=== PATIENT | female | born 1975 | race African-American/Black ===

== ENCOUNTER 2020-06-24 00:57 | Emergency (ER) | payer OTHER ==
--- NOTE | 2020-06-24 01:24 | ER Document Report ---
ED Medical Screen (RME) - General Chief Complaint: Chest Pain Stated Complaint: CHEST PAIN Time Seen by Provider: 06/24/20 01:22 Notes: HPI: 45-year-old female with possible prior blood pressure history who is not on medications and never has been presenting for palpitations and sensation of her heart beating quickly tonight. Did check her pressure today and it was elevated so she decided to come in for evaluation she denies any actual chest pain or shortness of breath. Patient attributes her elevated blood pressure and symptoms to eating food items recently with too much salt in them. States her entire family have high blood pressure. PHYSICAL EXAMINATION: Patient is noted to be moderately hypertensive. Mildly tachycardic. Lung sounds are clear to auscultation regular rhythm. EKG does not show evidence of STEMI I have greeted and performed a rapid initial assessment of this patient. A comprehensive ED assessment and evaluation of the patient, analysis of test results and completion of medical decision making process will be conducted by an additional ED providers. Physical Exam - Vital signs Vitals: Temp Pulse Resp BP Pulse Ox 98.4 F 102 H 16 183/111 H 100 06/24/20 01:07 06/24/20 01:07 06/24/20 01:07 06/24/20 01:07 06/24/20 01:07 Course - Vital Signs Vital signs: Temp Pulse Resp BP Pulse Ox 98.4 F 102 H 16 184/110 H 100 06/24/20 01:07 06/24/20 01:07 06/24/20 01:07 06/24/20 01:13 06/24/20 01:07
[2020-06-24 01:56] LABS: ABSOLUTE LYMPHOCYTES (AUTO) 1.9 10^3/uL (0.5-4.7); ABSOLUTE MONOCYTES (AUTO) 0.4 10^3/uL (0.1-1.4); ABSOLUTE NEUT (AUTO) 3.3 10^3/uL (1.7-8.2); BASOPHILS % (AUTO) 0.7 % (0-2); EOSINOPHILS % (AUTO) 0.2 % (0-6); HEMATOCRIT 37.7 % (36.0-47.0); HEMOGLOBIN 13.1 g/dL (12.0-15.5); LYMPHOCYTES % (AUTO) 33.6 % (13-45); MEAN CORPUSCULAR HEMOGLOBIN 32.1 pg (27.0-33.4); MEAN CORPUSCULAR HGB CONC 34.6 g/dL (32.0-36.0); MEAN CORPUSCULAR VOLUME 93 fl (80-97); MONOCYTES % (AUTO) 7.2 % (3-13); PLATELET COUNT 244 10^3/uL (150-450); RED BLOOD COUNT 4.07 10^6/uL (3.72-5.28); RED CELL DISTRIBUTION WIDTH 13.1 % (11.5-14.0); SEGMENTED NEUTROPHILS % (AUTO) 58.3 % (42-78); TOTAL CELLS COUNTED % (AUTO) 100 %; WHITE BLOOD COUNT 5.7 10^3/uL (4.0-10.5)
--- NOTE | 2020-06-24 01:59 | RADIOLOGY REPORT (SQ) ---
EXAM DESCRIPTION: X-RAY CHEST- One View CLINICAL HISTORY: Hypertension COMPARISON: None available TECHNIQUE: Single view of the chest. FINDINGS: There are no discrete air space infiltrates, pneumothoraces or pleural effusions. The pulmonary vascularity is normal. The cardiomediastinal silhouette is normal in size. No suspicious lytic or blastic osseous lesions are identified. IMPRESSION: There are no acute lung parenchymal findings.
[2020-06-24 02:19] LABS: ALBUMIN 4.6 g/dL (3.5-5.0); ALKALINE PHOSPHATASE 141 U/L (38-126); ANION GAP 11 (5-19); ASPARTATE AMINO TRANSFERASE 31 U/L (14-36); BILIRUBIN,DIRECT 0.2 mg/dL (0.0-0.4); BILIRUBIN,TOTAL 0.7 mg/dL (0.2-1.3); BLOOD UREA NITROGEN 9 mg/dL (7-20); CALCIUM 9.9 mg/dL (8.4-10.2); CARBON DIOXIDE 25 mmol/L (22-30); CHLORIDE 104 mmol/L (98-107); GLUCOSE 118 mg/dL (75-110); POTASSIUM 3.7 mmol/L (3.6-5.0); TOTAL PROTEIN 8.5 g/dL (6.3-8.2)
--- NOTE | 2020-06-24 02:22 | EKG REPORT ---
SEVERITY:- BORDERLINE ECG - SINUS RHYTHM PROBABLE LEFT ATRIAL ABNORMALITY BORDERLINE T WAVE ABNORMALITIES : Confirmed by: Howard Contreras MD 24-Jun-2020 02:21:36
[2020-06-24] MEDS ORDERED: CLONIDINE HCL 0.1 MG TABLET PO ONE (03:52)
[2020-06-24] MEDS ORDERED: HYDRALAZINE HCL INJ/PF 20 MG/1 ML SDV IV ONE (05:06)
--- NOTE | 2020-06-24 05:07 | ER Document Report ---
ED Cardiac - General Chief Complaint: Chest Pain Stated Complaint: CHEST PAIN Time Seen by Provider: 06/24/20 01:22 Primary Care Provider: BERNARD PHELPS NP [Primary Care Provider] - Follow up tomorrow (Follow-up today as scheduled.) Mode of Arrival: Ambulatory Information source: Patient Notes: 45-year-old female past medical history significant for intermittent h ypertension that has not needed treatment in the past. Presents emergency room complaining of palpitations and elevated blood pressure of 170/116 which started last night after eating [place] fried chicken. Denies any chest pain, no shortness of breath, no difficulty breathing. Took 1 aspirin 81 mg called her PCP and was referred to the emergency room. Patient states she had issues with her blood pressure after having a hysterectomy in October but it returned to normal without any treatment. Does have a family history of hypertension and palpitations no other cardiac family history. TRAVEL OUTSIDE OF THE [place] IN LAST 30 DAYS: No - Related Data Allergies/Adverse Reactions: No Known Allergies Allergy (Unverified 06/24/20 01:23) Past Medical History - General Information source: Patient - Social History Smoking Status: Never Smoker Frequency of alcohol use: None Drug Abuse: None Family History: Hypertension, Other - Palpitations Review of Systems - Review of Systems -: Yes ROS unobtainable due to patient's medical condition Constitutional: No symptoms reported Cardiovascular: Palpitations Respiratory: No symptoms reported Gastrointestinal: No symptoms reported Genitourinary: No symptoms reported Musculoskeletal: No symptoms reported Skin: No symptoms reported Hematologic/Lymphatic: No symptoms reported -: Yes All other systems reviewed and negative Physical Exam - Vital signs Vitals: Temp Pulse Resp BP Pulse Ox 98.4 F 102 H 16 183/111 H 100 06/24/20 01:07 06/24/20 01:07 06/24/20 01:07 06/24/20 01:07 06/24/20 01:07 - Notes Notes: VITAL SIGNS: Within normal limits. GENERAL: Mild acute distress, non-toxic appearance. HEAD: Normal with no signs of head trauma. EYES: PERRLA, EOMI, conjunctiva normal, no discharge. EARS: Hearing grossly intact. NOSE: Normal. THROAT: Oropharynx is normal. NECK: Normal range of motion, no tenderness, supple, no lymphadenopathy, No adenopathy, no JVD. CHEST: Clear breath sounds bilaterally. No wheezes, rales, or rhonchi. CARDIAC: Tachycardic with normal. S1 and S2, without murmurs, gallops, or rubs. VASCULAR: No Edema. Peripheral pulses normal and equal in all extremities. ABDOMEN: Normal and soft with no tenderness, no masses or pulsatile masses. No organomegaly. Positive bowel sounds x4. No CVA tenderness noted bilaterally. GASTROINTESTINAL: Bowel sounds normal GENITOURINARY: Normal, No tenderness LYMPATHTIC: No lymphadenopathy noted. MUSCULOSKELETAL: Good range of motion of all major joints. Extremities without clubbing, cyanosis or edema. NEUROLOGICAL: Alert and oriented x 3. No focal sensory or strength deficits. Speech normal. Follows commands appropriately. PSYCHIATRIC: Normal Affect, judgement and mood. SKIN: Normal appearance with no rashes or lesions. Course - Vital Signs Vital signs: Temp Pulse Resp BP Pulse Ox 98.4 F 102 H 13 173/108 H 100 06/24/20 01:07 06/24/20 01:07 06/24/20 04:31 06/24/20 04:31 06/24/20 04:31 - Laboratory Result Diagrams: 06/24/20 01:32 06/24/20 01:32 Laboratory results interpreted by sd: 06/24/20 01:32 Glucose 118 H Alkaline Phosphatase 141 H Total Protein 8.5 H - Diagnostic Test Radiology reviewed: Reports reviewed - EKG Interpretation by Md EKG shows normal: Sinus rhythm Additional EKG results interpreted by sd: 06/24/20 06:08 EKG was interpreted by ED physician Dr. Tapia No acute STEMI Normal sinus rhythm Rate 95 left atrial abnormality Borderline T wave abnormality Discharge - Discharge Clinical Impression: Palpitations, Elevated blood pressure reading without diagnosis of hypertension Condition: Stable Disposition: HOME, SELF-CARE Instructions: High Blood Pressure ([facility]), Palpitations (Irregular or Rapid Heartrate) ([facility]) Additional Instructions: Follow-up with your primary care physician today as scheduled. Return to the emergency room for any new or worsening symptoms. Referrals: BERNARD PHELPS NP [Primary Care Provider] - Follow up tomorrow (Follow-up today as scheduled.)
[2020-06-24 06:16] VITALS: BP 150/91
== END 2020-06-24 06:16 | disposition home or self-care (01) ==
LOC: ER 00:57
DX: R00.2 Palpitations (principal); R03.0 Elevated blood-pressure reading, without diagnosis of hypertension; Z90.710 Acquired absence of both cervix and uterus; Z82.49 Family history of ischemic heart disease and other diseases of the circulatory system
CPT/HCPCS: 93005; 99285; 96374; 36415; 84443; 85025; 80053; 84484; 71045; 93010; J0360

== ENCOUNTER 2020-06-25 03:38 | Emergency (ER) | payer OTHER ==
[2020-06-25 05:04] LABS: ABSOLUTE MONOCYTES (AUTO) 0.4 10^3/uL (0.1-1.4); ABSOLUTE NEUT (AUTO) 2.6 10^3/uL (1.7-8.2); BASOPHILS % (AUTO) 0.4 % (0-2); EOSINOPHILS % (AUTO) 0.5 % (0-6); HEMATOCRIT 39.5 % (36.0-47.0); HEMOGLOBIN 13.7 g/dL (12.0-15.5); LYMPHOCYTES % (AUTO) 40.1 % (13-45); MEAN CORPUSCULAR HEMOGLOBIN 32.4 pg (27.0-33.4); MEAN CORPUSCULAR HGB CONC 34.8 g/dL (32.0-36.0); MEAN CORPUSCULAR VOLUME 93 fl (80-97); PLATELET COUNT 265 10^3/uL (150-450); RED BLOOD COUNT 4.24 10^6/uL (3.72-5.28); RED CELL DISTRIBUTION WIDTH 13.1 % (11.5-14.0); TOTAL CELLS COUNTED % (AUTO) 100 %; WHITE BLOOD COUNT 5.1 10^3/uL (4.0-10.5)
--- NOTE | 2020-06-25 05:04 | RADIOLOGY REPORT (SQ) ---
EXAM DESCRIPTION: XR CHEST 2 VIEWS COMPLETED DATE/TME: 06/25/2020 00:00 CLINICAL HISTORY: 45 years, Female, chest pain COMPARISON: 06/24/2020 chest NUMBER OF VIEWS: 2 TECHNIQUE: 2 views of the chest LIMITATIONS: None. FINDINGS: Heart size is normal. Lungs clear. No pneumothorax IMPRESSION: No acute cardiopulmonary process copyright 2010 [employer] [facility]- All Rights Reserved
[2020-06-25 05:24] LABS: ALBUMIN 4.3 g/dL (3.5-5.0); ALKALINE PHOSPHATASE 130 U/L (38-126); ANION GAP 9 (5-19); ASPARTATE AMINO TRANSFERASE 30 U/L (14-36); BILIRUBIN,DIRECT 0.2 mg/dL (0.0-0.4); BILIRUBIN,TOTAL 0.7 mg/dL (0.2-1.3); BLOOD UREA NITROGEN 13 mg/dL (7-20); CALCIUM 9.5 mg/dL (8.4-10.2); CARBON DIOXIDE 28 mmol/L (22-30); CHLORIDE 103 mmol/L (98-107); CREATINE KINASE 93 U/L (30-135); GLUCOSE 116 mg/dL (75-110); POTASSIUM 3.4 mmol/L (3.6-5.0); TOTAL PROTEIN 8.1 g/dL (6.3-8.2)
[2020-06-25 05:35] LABS: CREATINE KINASE MB 0.25 ng/mL (<4.55)
[2020-06-25 05:36] LABS: TROPONIN I < 0.012 ng/mL
--- NOTE | 2020-06-25 08:52 | ER Document Report ---
ED General - General Chief Complaint: Irregular Pulse Stated Complaint: CHEST PAIN Time Seen by Provider: 06/25/20 08:10 Primary Care Provider: RADHA BURNS NP [Primary Care Provider] - Follow up as needed TRAVEL OUTSIDE OF THE [place] IN LAST 30 DAYS: No - HPI Notes: Chief complaint: Palpitations History of present illness: 45-year-old female returns to the emergency department for second visit 24-hour. Regarding concerns about palpitations, tachycardia and labile blood pressure elevation. Patient is a non-smoker who also denies any use of drugs or alcohol which she consumes a large amount of coffee every day. Currently on no regular prescription medications. Not sleeping well recently. Thyroid was checked 3 months ago reportedly normal. Patient was found to have sinus tachycardia when she was checked here yesterday. No specific recommendations were made aside from PMD follow-up. She had a telehealth visit with her primary provider, Radha Burns, yesterday and plan is to get an outpatient cardiac event monitor placed. She decided to come back in today because she says her blood pressure was elevated around 160/110 when she checked it at home this morning and also she had elevated pulse rate around 140 which she says is regular. She denies any chest pain, shortness of breath, nausea vomiting. Patient has no history of CAD. Positive family history of CAD. Patient is not diabetic. Recent labile hypertension never treated. No known history of hyperlipidemia. No history of thromboembolic disease. HEART Score: HISTORY 0 ECG 1 AGE 2 RISK FACTORS 2 TROPONIN 0 TOTAL: 3 If HEART score is = 3 AND both tronponin measurments are normal, the 30 day risk of a major adverse cardiac event (all-cause mortality, myocardia infarction or need for coronary revscularization) is < 1% (Sensitivity 100%, NPV 100%). - Related Data Allergies/Adverse Reactions: No Known Allergies Allergy (Unverified 06/24/20 01:23) Past Medical History - General Information source: Patient, [facility] Records - Social History Smoking Status: Never Smoker Frequency of alcohol use: None Drug Abuse: None Lives with: Family Family History: Hypertension, Other - Palpitations Patient has homicidal ideation: No - Past Medical History Cardiac Medical History: Reports: Hx Hypertension Endocrine Medical History: Denies: Hx Diabetes Mellitus Type 1, Hx Diabetes Andria itus Type 2 Surgical Hx: Negative Review of Systems - Review of Systems Notes: Constitutional: Negative for fever. HENT: Negative for sore throat. Eyes: Negative for visual changes. Cardiovascular: As per HPI. Respiratory: Negative for shortness of breath. Gastrointestinal: Negative for abdominal pain, vomiting or diarrhea. Genitourinary: Negative for dysuria. Musculoskeletal: Negative for back pain. Skin: Negative for rash. Neurological: Negative for headaches, weakness or numbness. 10 point ROS negative except as marked above and in HPI. Physical Exam - Vital signs Vitals: Blood pressure rechecked by me is 150/108 - Notes Notes: GENERAL: Well-developed well-nourished female approximate stated age appearing in no acute distress. SKIN: Good turgor no rashes. HEAD: Normocephalic atraumatic. EYES: PERRLA. EOMI. Conjunctivae and sclerae clear. EARS: CANALS AND TMS CLEAR. NOSE: CLEAR. MOUTH: Moist mucosa. Good dentition. No stridor or edema. No drooling. NECK: Supple. No masses or thyromegaly. No adenopathy. Carotids 2+ without bruits. No JVD. BACK: Symmetrical without tenderness. CHEST: Respirations unlabored. Breath sounds clear and symmetrical. HEART: Regular rhythm. No murmur gallop or rub. ABDOMEN: Soft nontender without masses, organomegaly or rebound. Bowel sounds normally active. No bruits. GENITALIA: Deferred. EXTREMITIES: No edema. No calf tenderness. Cap refill less than 1.5 seconds. Dorsalis pedis and posterior tibial pulses 3+ and symmetrical. NEUROLOGICAL: GCS 15. Alert and oriented x3. Normal gait. Fluent speech. Cranial nerves II through XII intact. Sensorimotor and cerebellar normal. Normal tone. PSYCHIATRIC: Appropriate affect. Course - Re-evaluation Re-evalutation: 06/25/20 09:45 Patient is having some palpitations with episodes of sinus tachycardia. She also has labile hypertension. She has some nonspecific T wave changes on her EKG and her potassium was marginally low at 3.4. She was given some oral potassium. I also checked a magnesium level and this was normal at 2.0. Patient has had 3 troponins negative within the last 24 hours. She has had no chest pain. Feel she is stable for outpatient follow-up with primary care provider. She will need to have her potassium rechecked within the next several days and I will send her home on some oral potassium. If her palpitations fail to resolve she is probably going need further evaluation with a cardiac event monitor and she definitely needs follow-up for blood pressure. I have also strongly recommended patient try to improve her sleep hygiene and limit her caffeine intake. Findings, clinical impression and plan of treatment have been discussed with patient/family. Understanding of current findings and recommendations has been acknowledged by them and there is agreement regarding disposition and follow-up. - Laboratory Result Diagrams: 06/25/20 04:40 06/25/20 04:40 Laboratory results interpreted by me: 06/25/20 04:40 Potassium 3.4 L Glucose 116 H Alkaline Phosphatase 130 H - EKG Interpretation by Me Additional EKG results interpreted by me: 06/25/20 08:58 Twelve-lead EKG reviewed by me contemporaneously: 10/13/1942 Indication for study: Palpitations Rhythm: Sinus tachycardia Rate: 110 Intervals: Normal QRS axis: Normal +[address]/T wave changes: Nonspecific T wave changes Comparison with prior tracing: No significant interval change from prior tracing of 06/24/2020 Interpretation: Sinus tachycardia with nonspecific T wave changes Discharge - Discharge Clinical Impression: Palpitations, Hypokalemia, Labile hypertension Condition: Stable Disposition: HOME, SELF-CARE Additional Instructions: Take prescribed potassium supplement as directed. Try to get 8 hours of sleep each night. Limit your caffeine intake as directed. Follow-up with your primary care provider on your blood pressure, your potassium level and outpatient cardiac monitoring as we have discussed. Return here as needed for new or worsening symptoms. You have been provided a work note for the next 3 days. Prescriptions: Potassium Chloride 20 meq PO BID 7 Days #14 [email or web address] Forms: Elevated Blood Pressure, Return to Work Referrals: RADHA BURNS NP [Primary Care Provider] - Follow up as needed
[2020-06-25] MEDS ORDERED: POTASSIUM CHLORIDE 20 MEQ PACKET PO ONE (08:59)
[2020-06-25 09:55] VITALS: BP 143/98
== END 2020-06-25 09:56 | disposition home or self-care (01) ==
LOC: ER 03:38
DX: I10 Essential (primary) hypertension (principal); R00.2 Palpitations; R00.0 Tachycardia, unspecified; E87.6 Hypokalemia; Z82.49 Family history of ischemic heart disease and other diseases of the circulatory system
CPT/HCPCS: 99284; 36415; 82553; 82550; 83735; 85025; 80053; 84484; 71046; J3490